=== PATIENT | female | born 1990 | race Caucasian/White ===

== ENCOUNTER 2023-02-23 05:42 | Inpatient (IN) | payer BC ==
[2023-02-20 14:13] LABS: Hematocrit 40.6 % (34.9-44.5); Hemoglobin 13.7 g/dL (12.0-15.5); Platelet Count 218 10x3/uL (150-450)
[2023-02-20 14:54] LABS: HBSAg Index 0.16 S/CO (0-0.99); Hep B Surf Ag Non-Reactive S/CO (NonReactive); Syphilis Antibody Nonreactive (Nonreactive); Syphilis Antibody Index 0.03 S/CO (<1.00 Non-Reactive)
[2023-02-23 06:14] VITALS: BMI 35.9
[2023-02-23] MEDS ORDERED: CEFAZOLIN 2 GM VIAL ONE (07:07)
[2023-02-23] MEDS ORDERED: Methylergonovine 0.2 MG/ML VIAL IM PRN (07:10)
[2023-02-23] MEDS ORDERED: Promethazine HCl 25 MG/ML VIAL IM PRN ×2 (07:10→08:54)
[2023-02-23] MEDS ORDERED: Famotidine/PF 20 mg/2ml Vial SLOW IVP PRN (07:10)
[2023-02-23] MEDS ORDERED: hydrALAZINE 20 MG/ML VIAL SLOW IVP PRN ×2 (07:10→11:48)
[2023-02-23] MEDS ORDERED: Misoprostol 200 MCG TAB PR PRN (07:10)
[2023-02-23] MEDS ORDERED: Ondansetron PF 4 MG/2 ML Vial IVP PRN ×3 (07:10→08:54)
[2023-02-23] MEDS ORDERED: Bicitra 30 ML UDCUP PO PRN (07:10)
[2023-02-23] MEDS ORDERED: Tranexamic Acid 1,000 MG/10 ML VIAL IVP PRN (07:10)
[2023-02-23] MEDS ORDERED: Acetaminophen 500 MG TAB PO PRN (07:10)
[2023-02-23] MEDS ORDERED: Diphenoxylate HCl/Atropine Tablet PO PRN ×2 (07:10)
[2023-02-23] MEDS ORDERED: Carboprost 250 MCG/ML AMP IM PRN (07:10)
[2023-02-23] MEDS ORDERED: CEFAZOLIN 2 GM in Sodium Chloride 0.9% 100 ML IVPB SCH (07:15)
[2023-02-23] MEDS ORDERED: Oxytocin 30 units/NS 500 ML 500 ML IV SCH (07:15)
[2023-02-23] MEDS ORDERED: Morphine PF 10 MG/10 ML VIAL ONE (07:23)
[2023-02-23] MEDS ORDERED: fentaNYL 50 mcg/mL 1 mL Vial ONE (07:23)
[2023-02-23] MEDS ORDERED: Sodium Bicarbonate 2.5 MEQ/5 ML VIAL ONE (07:24)
[2023-02-23] MEDS ORDERED: Phenylephrine 40 MG/NS 250 ML 250 ML ONE (07:24)
[2023-02-23] MEDS ORDERED: Ondansetron PF 4 MG/2 ML Vial ONE (07:29)
[2023-02-23] MEDS ORDERED: Dexamethasone 4 mg/ml Vial ONE (07:29)
[2023-02-23] MEDS ORDERED: Ketorolac Tromethamine 30 MG/ML VIAL ONE (07:30)
[2023-02-23] MEDS ORDERED: Oxytocin 10 UNITS/ML VIAL ONE (07:30)
[2023-02-23] MEDS: Lactated Ringer's 1,000 ML IV SCH ×2 (07:35→16:03)
[2023-02-23] MEDS ORDERED: diphenhydrAMINE 50 MG/ML VIAL ONE (07:58)
[2023-02-23] MEDS ORDERED: fentaNYL 50 mcg/mL 1 mL Vial SLOW IVP PRN (08:54)
[2023-02-23] MEDS ORDERED: Moisturizing Cream (Eucerin) 113 GM JAR TOP PRN (08:54)
[2023-02-23] MEDS ORDERED: Naloxone HCl 0.4 mg/ml Vial IV PRN (08:54)
[2023-02-23] MEDS ORDERED: Promethazine HCl 25 MG SUPP PR PRN (08:54)
[2023-02-23] MEDS ORDERED: diphenhydrAMINE 50 MG/ML VIAL IVP PRN (08:54)
[2023-02-23] MEDS ORDERED: Naloxone HCl 0.4 mg/ml Vial IVP PRN ×2 (08:54)
[2023-02-23] MEDS ORDERED: Meperidine HCl/PF 25 MG/ML VIAL SLOW IVP PRN (08:54)
[2023-02-23] MEDS ORDERED: Communication Order-Pharmacy FS SCH (09:00)
[2023-02-23 11:29] LABS: ALT (SGPT) 16 U/L (8-55); AST (SGOT) 23 U/L (5-34); Alkaline Phosphatase 142 U/L (40-110); Anion Gap 11 mmol/L (10-20); BUN (Urea Nitrogen) 8 mg/dL (7.0-18.7); Bilirubin, Total 0.3 mg/dL (0.2-1.2); Calc. Creatinine Clearance 217 mL/min (70-130); Calcium 9.2 mg/dL (7.8-10.44); Carbon Dioxide 21 mmol/L (22-29); Chloride 109 mmol/L (98-107); Estimated GFR 122; Globulin 2.7 g/dL (2.4-3.5); Glucose 94 mg/dL (70-105); Potassium 4.2 mmol/L (3.5-5.1); Protein, Total 5.7 g/dL (6.0-8.3); Sodium 137 mmol/L (136-145)
[2023-02-23] MEDS ORDERED: Lanolin Ointment 7 GM TUBE TOP PRN (11:48)
[2023-02-23] MEDS ORDERED: Acetaminophen 325 MG TAB PO PRN (11:48)
[2023-02-23] MEDS ORDERED: Boostrix 0.5 ML (Tdap) VIAL (>/=7 yrs of age) IM ONE (11:48)
[2023-02-23] MEDS ORDERED: Simethicone Chewable 80 MG TAB PO PRN (11:48)
[2023-02-23] MEDS ORDERED: diphenhydrAMINE 25 MG CAP PO PRN (11:48)
[2023-02-23] MEDS ORDERED: Bisacodyl 10 MG SUPP PR PRN (11:48)
[2023-02-23] MEDS ORDERED: Prenatal Vitamin 1 TAB PO SCH (12:00)
[2023-02-23] MEDS ORDERED: Docusate 100 MG CAP PO SCH (12:00)
[2023-02-23] MEDS ORDERED: Ferrous Sulfate 325 MG TAB PO SCH (12:00)
[2023-02-23 12:08] LABS: Creatinine, Urine 49.18 mg/dL (47-110)
[2023-02-23] MEDS: Ketorolac Tromethamine 30 MG/ML VIAL IVP SCH ×2 (16:03→21:34)
[2023-02-23] MEDS: Docusate 100 MG CAP PO SCH (21:34)
[2023-02-23] MEDS: Ferrous Sulfate 325 MG TAB PO SCH (21:34)
[2023-02-24] MEDS: Ketorolac Tromethamine 30 MG/ML VIAL IVP SCH ×2 (03:27→08:50)
[2023-02-24 03:30] LABS: Hematocrit 31.5 % (34.9-44.5); Hemoglobin 10.5 g/dL (12.0-15.5); Mean Corpuscular HGB CONC 33.3 g/dL (32.0-36.0); Mean Corpuscular Hemoglobin 31.1 pg (27.0-33.0); Mean Corpuscular Volume 93.2 fl (81.6-98.3); Mean Platelet Volume 11.1 fl (7.4-10.4); Platelet Count 175 10x3/uL (150-450); RBC Distribution Width 14.1 % (11.5-14.5); Red Blood Cell (RBC) Count 3.38 10x6/uL (3.90-5.03); White Blood Cell (WBC) Count 14.1 10x3/uL (3.5-10.5)
[2023-02-24] MEDS: Lactated Ringer's 1,000 ML IV SCH ×3 (03:30→15:54)
[2023-02-24] MEDS: Prenatal Vitamin 1 TAB PO SCH (08:49)
[2023-02-24] MEDS: Ferrous Sulfate 325 MG TAB PO SCH ×2 (08:50→21:36)
[2023-02-24] MEDS: Docusate 100 MG CAP PO SCH ×2 (08:50→22:09)
[2023-02-24] MEDS: HYDROcodone/Acetaminophen 5/325 mg Tablet PO PRN ×3 (12:44→20:52)
[2023-02-24] MEDS: Ibuprofen 800 MG TAB PO SCH (22:09)
[2023-02-25] MEDS: Lactated Ringer's 1,000 ML IV SCH ×2 (01:50→08:35)
[2023-02-25] MEDS: HYDROcodone/Acetaminophen 5/325 mg Tablet PO PRN ×3 (01:53→12:36)
[2023-02-25] MEDS: Ibuprofen 800 MG TAB PO SCH (05:53)
[2023-02-25 08:08] VITALS: BP 120/65; TEMP 98.1
[2023-02-25 08:25] LABS: Hematocrit 30.2 % (34.9-44.5); Mean Corpuscular HGB CONC 33.1 g/dL (32.0-36.0); Mean Corpuscular Hemoglobin 31.3 pg (27.0-33.0); Mean Corpuscular Volume 94.4 fl (81.6-98.3); Mean Platelet Volume 11.2 fl (7.4-10.4); Platelet Count 177 10x3/uL (150-450); RBC Distribution Width 14.6 % (11.5-14.5); White Blood Cell (WBC) Count 10.2 10x3/uL (3.5-10.5)
[2023-02-25] MEDS: Docusate 100 MG CAP PO SCH (08:34)
[2023-02-25] MEDS: Prenatal Vitamin 1 TAB PO SCH (08:34)
[2023-02-25] MEDS: Ferrous Sulfate 325 MG TAB PO SCH (09:24)
== END 2023-02-25 13:25 | disposition home or self-care (01) | DRG 807 ==
LOC: CSHLD 05:42 → CSHPP 11:41
PROVIDERS: ADMIT Obstetrics & Gynecology; ATTEND Obstetrics & Gynecology
PROC: 10E0XZZ Delivery of Products of Conception, External Approach (ICD-10-PCS; principal; 2023-02-23)
DX: O34.211 Maternal care for low transverse scar from previous cesarean delivery (principal); Z37.0 Single live birth; O65.5 Obstructed labor due to abnormality of maternal pelvic organs; O34.13 Maternal care for benign tumor of corpus uteri, third trimester; D25.2 Subserosal leiomyoma of uterus; Z3A.37 37 weeks gestation of pregnancy
CPT/HCPCS: 36415; 51702; 80053; 82570; 84156; 85014; 85018; 85027; 85049; 86780; 86850; 86900; 86901; 87340; J1100; J1200; J1650; J1885; J2175; J2274; J2405; J2590; J3010; J7120; S0028